=== PATIENT | male | born 1955 | race Caucasian/White ===

== ENCOUNTER 2017-02-22 16:52 | Inpatient (IN) | payer OTHER ==
[~2017-02-22] VITALS: Ht 167.6 cm; Wt 80.6 kg
[~2017-02-22 16:52] MED LIST: ALBUTEROL SULFATE HFA 90 MCG/PUFF 8 GM INHALER IH ONE; DIABETIC MEDICATION PO; ESMOLOL HCL 10 MG/ML 10 ML VIAL IVP ONE; GLYCOPYRROLATE 0.2 MG/ML VIAL IM ONE; LIDOCAINE HCL/PF 2% 5 ML VIAL IM ONE; LISI-661 PO; METOCLOPRAMIDE HCL 5 MG/ML 2 ML VIAL IVP ONE; NEOSTIGMINE METHYLSULFATE 1 MG/ML 10 ML VIAL IVP ONE; PROPOFOL 1% 20 ML VIAL IVP ONE; ROCURONIUM BROMIDE 10 MG/ML 5 ML VIAL IVP ONE; SIMV20TA6 PO; SYMB8060 IH
[2017-02-22 17:20] LABS: BASOPHILS % (AUTO) 0.2 % (0.0-2.0); HEMATOCRIT 36.9 % (41-53); HEMOGLOBIN 12.3 g/dL (13.5-17.5); LYMPHOCYTES # (AUTO) 1.2 K/uL (1.0-4.8); LYMPHOCYTES % (AUTO) 12.4 % (22.0-44.0); MEAN CORPUSCULAR HEMOGLOBIN 30.2 pg (26.0-34.0); MEAN CORPUSCULAR HGB CONC 33.4 G/dL (31.0-37.0); MEAN CORPUSCULAR VOLUME 91 fL (80-100); MONOCYTES # (AUTO) 0.5 K/uL (0.1-1.0); MONOCYTES % (AUTO) 5.2 % (2.0-9.0); NEUTROPHILS # (AUTO) 7.7 K/uL (1.8-7.7); NEUTROPHILS % (AUTO) 81.2 % (40.0-70.0); PLATELET COUNT (AUTO) 283 K/uL (150-450); RED BLOOD CELL COUNT(AUTO) 4.08 MIL/uL (4.50-5.90); RED CELL DISTRIBUTION WIDTH 12.9 % (11.5-14.5); WHITE BLOOD COUNT (AUTO) 9.5 K/uL (4.5-11.0)
[2017-02-22 17:25] LABS: CALCIUM, TOTAL 8.5 mg/dL (8.8-10.5); CREATININE 1.65 mg/dL (0.60-1.30); POTASSIUM 4.1 mmol/L (3.5-5.1)
[2017-02-22 17:30] LABS: ALBUMIN 2.7 g/dL (3.4-5.0); BILIRUBIN,TOTAL 0.8 mg/dL (0.1-1.0); INR 1.1 (0.9-1.1); PROTHROMBIN TIME 11.3 SEC (9.4-11.6); TOTAL PROTEIN, SERUM 6.8 g/dL (6.4-8.2)
[2017-02-22 18:12] LABS: GLUCOSE,POINT OF CARE 372 MG/DL (70-110)
[2017-02-22] MEDS ORDERED: LOPE2 PO (18:19)
[2017-02-22] MEDS ORDERED: CARV3 PO (18:19)
[2017-02-22] MEDS ORDERED: AMLO-511 PO (18:19)
[2017-02-22] MEDS ORDERED: METO-323 PO (18:19)
[2017-02-22] MEDS ORDERED: HYDR25TA PO (18:19)
[2017-02-22] MEDS ORDERED: ASPI-556 PO (18:19)
[2017-02-22] MEDS ORDERED: LINA5TAB PO (18:19)
[2017-02-22] MEDS ORDERED: CLOP75 PO (18:19)
[2017-02-22] MEDS ORDERED: ISOS30TA6 PO (18:19)
[2017-02-22] MEDS ORDERED: NITR.4 SL (18:19)
[2017-02-22] MEDS ORDERED: INSLAN SQ (18:20)
[2017-02-22] MEDS ORDERED: INSNOV SQ (18:20)
[2017-02-22] MEDS ORDERED: ONDANSETRON HCL 4 MG/2 ML VIAL IVP ONE (18:30)
[2017-02-22] MEDS ORDERED: INSULIN REGULAR, HUMAN 100 UNITS/ML IVP ONE (18:30)
[2017-02-22] MEDS ORDERED: VANCOMYCIN HCL 1 GM/D5% WATER 200 ML IV ONE (18:30)
[2017-02-22] MEDS ORDERED: MORPHINE SULFATE 4 MG/ML SYRINGE IVP ONE (18:30)
[2017-02-22] MEDS ORDERED: SODIUM CHLORIDE 0.9% 1,000 ML IV ONE (18:30)
[2017-02-22] MEDS ORDERED: ACETAMINOPHEN 325 MG TABLET PO PRN (19:30)
[2017-02-22] MEDS ORDERED: DEXTROSE 50%-WATER 25 GM/50 ML SYRINGE IVP PRN ×2 (19:30→23:45)
[2017-02-22] MEDS ORDERED: ONDANSETRON HCL 4 MG/2 ML VIAL IVP PRN (19:30)
[2017-02-22] MEDS ORDERED: 0.9% SODIUM CHLORIDE 10 ML SYRINGE IVP PRN (19:30)
[2017-02-22 19:51] LABS: GLUCOSE COMMENT 1 Doctor Notified; GLUCOSE,POINT OF CARE 227 MG/DL (70-110)
[2017-02-22 20:54] VITALS: BP 109/69
[2017-02-22 23:42] VITALS: BP 119/71
[2017-02-22] MEDS ORDERED: OxyCODONE HCL/ACETAMINOPHEN 5-325 MG TABLET PO PRN (23:45)
[2017-02-23] MEDS ORDERED: SODIUM CHLORIDE 0.9% 0 ML IV ONE (00:26)
[2017-02-23] MEDS: PIPERACILLIN/TAZO 3.375 GM/D5W 50 ML IV SCH ×5 (00:32→23:40)
[2017-02-23 04:51] VITALS: BP 121/72
[2017-02-23 06:12] LABS: BASOPHILS % (AUTO) 0.5 % (0.0-2.0); EOSINOPHILS % (AUTO) 1.7 % (1.0-6.0); LYMPHOCYTES # (AUTO) 1.3 K/uL (1.0-4.8); LYMPHOCYTES % (AUTO) 18.3 % (22.0-44.0); MEAN CORPUSCULAR HEMOGLOBIN 30.3 pg (26.0-34.0); MEAN CORPUSCULAR HGB CONC 33.2 G/dL (31.0-37.0); MEAN CORPUSCULAR VOLUME 91 fL (80-100); MONOCYTES # (AUTO) 0.6 K/uL (0.1-1.0); NEUTROPHILS % (AUTO) 71.5 % (40.0-70.0); PLATELET COUNT (AUTO) 238 K/uL (150-450); RED BLOOD CELL COUNT(AUTO) 3.61 MIL/uL (4.50-5.90); RED CELL DISTRIBUTION WIDTH 12.9 % (11.5-14.5)
[2017-02-23 06:26] LABS: ALBUMIN 2.1 g/dL (3.4-5.0); BILIRUBIN,TOTAL 0.5 mg/dL (0.1-1.0); CALCIUM, TOTAL 7.6 mg/dL (8.8-10.5); CREATININE 1.43 mg/dL (0.60-1.30); POTASSIUM 3.6 mmol/L (3.5-5.1); TOTAL PROTEIN, SERUM 5.7 g/dL (6.4-8.2)
[2017-02-23] MEDS ORDERED: SODIUM CHLORIDE 0.9% 1,000 ML IV ONE (06:59)
[2017-02-23] MEDS ORDERED: SODIUM CHLORIDE 0.9% 500 ML IV ONE (07:00)
[2017-02-23] MEDS ORDERED: SODIUM CHLORIDE 0.9% 10 ML ONE (07:00)
[2017-02-23] MEDS ORDERED: SODIUM CL IRRIG SOLN BAG 3,000 ML IRRIG ONE (07:00)
[2017-02-23] MEDS ORDERED: BACITRACIN 50,000 UNITS/VIAL ONE (07:00)
[2017-02-23] MEDS ORDERED: FentaNYL CITRATE-PF 100 MCG/2 ML VIAL IVP ONE (07:02)
[2017-02-23] MEDS ORDERED: MIDAZOLAM HCL 2 MG/2 ML VIAL IVP ONE (07:02)
[2017-02-23 07:20] VITALS: BP 105/76
[2017-02-23] MEDS ORDERED: MEPERIDINE-PF 25 MG/ML SYRINGE IVP PRN (07:45)
[2017-02-23] MEDS ORDERED: OXYGEN THERAPY IH SCH (08:00)
[2017-02-23] MEDS ORDERED: NITROGLYCERIN 0.4 MG SUBLINGUAL TABLET #25 SL PRN (09:15)
[2017-02-23] MEDS ORDERED: HYDROCODONE/ACETAMINOPHEN 5-325 MG TABLET PO PRN (09:15)
[2017-02-23] MEDS ORDERED: ZOLPIDEM TARTRATE 10 MG TABLET PO PRN (09:15)
[2017-02-23] MEDS ORDERED: BISACODYL 10 MG RECTAL RECTAL SUPPOSITORY PR PRN (09:15)
[2017-02-23] MEDS ORDERED: AmLODIPine BESYLATE 5 MG TABLET PO SCH (09:15)
[2017-02-23] MEDS: FentaNYL CITRATE-PF 100 MCG/2 ML VIAL IVP PRN ×2 (09:20→09:38)
[2017-02-23] MEDS ORDERED: PNEUMOCOCCAL VACCINE POLYVALENT 0.5 ML VIAL [PPSV23] IM ONE (10:30)
[2017-02-23 11:02] LABS: GLUCOSE COMMENT 1 Received Meds; GLUCOSE,POINT OF CARE 294 MG/DL (70-110)
[2017-02-23 11:04] VITALS: BP 126/78
[2017-02-23 11:26] LABS: BASOPHILS # (AUTO) 0.04 K/uL (0.00-0.20); BASOPHILS % (AUTO) 0.7 % (0.0-2.0); EOSINOPHILS # (AUTO) 0.07 K/uL (0.00-0.70); EOSINOPHILS % (AUTO) 1.07 % (1.0-6.0); HEMATOCRIT 32.8 % (41-53); HEMOGLOBIN 11.1 g/dL (13.5-17.5); LYMPHOCYTES # (AUTO) 0.6 K/uL (1.0-4.8); LYMPHOCYTES % (AUTO) 8.9 % (22.0-44.0); MEAN CORPUSCULAR HGB CONC 33.8 G/dL (31.0-37.0); MEAN CORPUSCULAR VOLUME 89 fL (80-100); MONOCYTES # (AUTO) 0.3 K/uL (0.1-1.0); MONOCYTES % (AUTO) 5.2 % (2.0-9.0); NEUTROPHILS # (AUTO) 5.4 K/uL (1.8-7.7); NEUTROPHILS % (AUTO) 84.2 % (40.0-70.0); PLATELET COUNT (AUTO) 251 K/uL (150-450); RED BLOOD CELL COUNT(AUTO) 3.68 MIL/uL (4.50-5.90); RED CELL DISTRIBUTION WIDTH 12.5 % (11.5-14.5); WHITE BLOOD COUNT (AUTO) 6.4 K/uL (4.5-11.0)
[2017-02-23 11:30] LABS: CALCIUM, TOTAL 7.4 mg/dL (8.8-10.5); CREATININE 1.7 mg/dL (0.60-1.30); POTASSIUM 4.2 mmol/L (3.5-5.1)
[2017-02-23] MEDS ORDERED: SODIUM CHLORIDE 0.9% 250 ML IV ONE (11:52)
[2017-02-23] MEDS ORDERED: VANCOMYCIN HCL 1 GM/D5% WATER 200 ML IV ONE (12:00)
[2017-02-23] MEDS: INSULIN ASPART 100 UNITS/ML SQ PRN ×3 (12:11→21:07)
[2017-02-23] MEDS: HYDROCHLOROTHIAZIDE 25 MG TABLET PO SCH (14:33)
[2017-02-23] MEDS: CLOPIDOGREL BISULFATE 75 MG TABLET PO SCH (14:33)
[2017-02-23] MEDS: ASPIRIN 81 MG EC TABLET PO SCH (14:33)
[2017-02-23] MEDS: LISINOPRIL 10 MG TABLET PO SCH (14:33)
[2017-02-23] MEDS: METOPROLOL SUCCINATE 25 MG ER TABLET PO SCH (14:34)
[2017-02-23] MEDS: BUDESONIDE/FORMOTEROL FUMARATE 80-4.5 MCG/PUFF 6.9 GM INHALER IH SCH ×2 (14:34→20:58)
[2017-02-23 15:25] VITALS: BP 108/63
[2017-02-23] MEDS: HEPARIN SODIUM,PORCINE 5,000 UNITS/ML VIAL SQ SCH ×2 (16:24→23:40)
[2017-02-23] MEDS: MORPHINE SULFATE 4 MG/ML SYRINGE IVP PRN (16:40)
[2017-02-23] MEDS: INSULIN ASPART 100 UNITS/ML SQ SCH (17:10)
[2017-02-23 20:22] VITALS: BP 104/61
[2017-02-23] MEDS: DOCUSATE SODIUM 100 MG CAPSULE PO SCH (20:58)
[2017-02-23] MEDS: SIMVASTATIN 20 MG TABLET PO SCH (20:58)
[2017-02-23] MEDS: CARVEDILOL 3.125 MG TABLET PO SCH (20:59)
[2017-02-23] MEDS ORDERED: DEXTROSE 50%-WATER 25 GM/50 ML SYRINGE IVP PRN (23:15)
[2017-02-23] MEDS: ACETAMINOPHEN 325 MG TABLET PO PRN (23:40)
[2017-02-24] VITALS (13 sets, daily range): BP systolic 82–127; BP diastolic 49–60
[2017-02-24] MEDS: PIPERACILLIN/TAZO 3.375 GM/D5W 50 ML IV SCH ×3 (05:41→18:53)
[2017-02-24] MEDS: INSULIN ASPART 100 UNITS/ML SQ PRN ×4 (05:51→20:56)
[2017-02-24] MEDS: INSULIN ASPART 100 UNITS/ML SQ SCH ×2 (05:51→17:30)
[2017-02-24 07:11] LABS: BASOPHILS # (AUTO) 0.02 K/uL (0.00-0.20); BASOPHILS % (AUTO) 0.3 % (0.0-2.0); EOSINOPHILS # (AUTO) 0.07 K/uL (0.00-0.70); HEMATOCRIT 30.9 % (41-53); HEMOGLOBIN 10.3 g/dL (13.5-17.5); LYMPHOCYTES # (AUTO) 0.9 K/uL (1.0-4.8); LYMPHOCYTES % (AUTO) 15.1 % (22.0-44.0); MEAN CORPUSCULAR HEMOGLOBIN 30.1 pg (26.0-34.0); MEAN CORPUSCULAR HGB CONC 33.5 G/dL (31.0-37.0); MEAN CORPUSCULAR VOLUME 90 fL (80-100); MONOCYTES # (AUTO) 0.5 K/uL (0.1-1.0); MONOCYTES % (AUTO) 8.5 % (2.0-9.0); NEUTROPHILS # (AUTO) 4.5 K/uL (1.8-7.7); NEUTROPHILS % (AUTO) 74.9 % (40.0-70.0); PLATELET COUNT (AUTO) 271 K/uL (150-450); RED BLOOD CELL COUNT(AUTO) 3.44 MIL/uL (4.50-5.90); RED CELL DISTRIBUTION WIDTH 13.4 % (11.5-14.5)
[2017-02-24 07:18] LABS: HEMOGLOBIN A1C 13.1 % (4.5-6.2)
[2017-02-24 07:39] LABS: CALCIUM, TOTAL 7.6 mg/dL (8.8-10.5); CREATININE 3.27 mg/dL (0.60-1.30); POTASSIUM 3.6 mmol/L (3.5-5.1)
[2017-02-24] MEDS ORDERED: VANCOMYCIN HCL 1.25 GM in DEXTROSE 5%-WATER 250 ML IV SCH (08:00)
[2017-02-24] MEDS: HYDROCHLOROTHIAZIDE 25 MG TABLET PO SCH (09:00)
[2017-02-24] MEDS: METOPROLOL SUCCINATE 25 MG ER TABLET PO SCH (09:00)
[2017-02-24] MEDS: CARVEDILOL 3.125 MG TABLET PO SCH ×2 (09:00→21:00)
[2017-02-24] MEDS: LISINOPRIL 10 MG TABLET PO SCH (09:00)
[2017-02-24] MEDS: BUDESONIDE/FORMOTEROL FUMARATE 80-4.5 MCG/PUFF 6.9 GM INHALER IH SCH ×2 (09:25→20:51)
[2017-02-24] MEDS: HEPARIN SODIUM,PORCINE 5,000 UNITS/ML VIAL SQ SCH ×2 (09:26→18:53)
[2017-02-24] MEDS: CLOPIDOGREL BISULFATE 75 MG TABLET PO SCH (09:26)
[2017-02-24] MEDS: LinaGLIPtin 5 MG TABLET PO SCH (09:30)
[2017-02-24] MEDS: ASPIRIN 81 MG EC TABLET PO SCH (09:30)
[2017-02-24] MEDS: DOCUSATE SODIUM 100 MG CAPSULE PO SCH ×2 (09:31→20:50)
[2017-02-24] MEDS ORDERED: VANCOMYCIN HCL 1 GM/D5% WATER 200 ML IV PRN (10:15)
[2017-02-24] MEDS ORDERED: SODIUM CHLORIDE 0.9% 250 ML IV ONE ×2 (12:09→12:15)
[2017-02-24 18:31] LABS: GLUCOSE COMMENT 1 Received Meds; GLUCOSE,POINT OF CARE 229 MG/DL (70-110)
[2017-02-24 18:31] LABS: GLUCOSE COMMENT 1 Received Meds; GLUCOSE,POINT OF CARE 143 MG/DL (70-110)
[2017-02-24] MEDS: ISOSORBIDE MONONITRATE 30 MG ER TABLET PO SCH (18:52)
[2017-02-24] MEDS: SIMVASTATIN 20 MG TABLET PO SCH (20:50)
[2017-02-24 23:17] LABS: GLUCOSE COMMENT 1 Received Meds; GLUCOSE,POINT OF CARE 202 MG/DL (70-110)
[2017-02-25] VITALS (7 sets, daily range): BP systolic 99–137; BP diastolic 60–80
[2017-02-25] MEDS: ACETAMINOPHEN 325 MG TABLET PO PRN (00:06)
[2017-02-25] MEDS: HEPARIN SODIUM,PORCINE 5,000 UNITS/ML VIAL SQ SCH ×3 (00:06→15:05)
[2017-02-25] MEDS: PIPERACILLIN/TAZO 3.375 GM/D5W 50 ML IV SCH ×4 (00:07→17:40)
[2017-02-25] MEDS: INSULIN ASPART 100 UNITS/ML SQ SCH ×2 (06:22→15:03)
[2017-02-25] MEDS: INSULIN ASPART 100 UNITS/ML SQ PRN ×4 (06:22→20:40)
[2017-02-25 06:59] LABS: GLUCOSE COMMENT 1 Received Meds; GLUCOSE,POINT OF CARE 304 MG/DL (70-110)
[2017-02-25 06:59] LABS: GLUCOSE COMMENT 1 Received Meds; GLUCOSE,POINT OF CARE 187 MG/DL (70-110)
[2017-02-25 06:59] LABS: GLUCOSE COMMENT 1 Received Meds; GLUCOSE,POINT OF CARE 191 MG/DL (70-110)
[2017-02-25 06:59] LABS: GLUCOSE COMMENT 1 Received Meds; GLUCOSE,POINT OF CARE 214 MG/DL (70-110)
[2017-02-25 06:59] LABS: GLUCOSE COMMENT 1 Received Meds; GLUCOSE,POINT OF CARE 302 MG/DL (70-110)
[2017-02-25 07:20] LABS: CALCIUM, TOTAL 7.2 mg/dL (8.8-10.5); CREATININE 4.19 mg/dL (0.60-1.30); POTASSIUM 3.5 mmol/L (3.5-5.1)
[2017-02-25] MEDS ORDERED: SODIUM CHLORIDE 0.9% IRRIG BTL 1,000 ML IRRIG ONE (08:40)
[2017-02-25] MEDS: CARVEDILOL 3.125 MG TABLET PO SCH ×2 (08:55→21:00)
[2017-02-25] MEDS: LISINOPRIL 10 MG TABLET PO SCH (08:56)
[2017-02-25] MEDS: METOPROLOL SUCCINATE 25 MG ER TABLET PO SCH (08:56)
[2017-02-25] MEDS: ISOSORBIDE MONONITRATE 30 MG ER TABLET PO SCH (08:56)
[2017-02-25] MEDS: HYDROCHLOROTHIAZIDE 25 MG TABLET PO SCH (08:56)
[2017-02-25] MEDS: ASPIRIN 81 MG EC TABLET PO SCH (08:59)
[2017-02-25] MEDS: DOCUSATE SODIUM 100 MG CAPSULE PO SCH ×2 (09:02→20:30)
[2017-02-25] MEDS: LinaGLIPtin 5 MG TABLET PO SCH (09:02)
[2017-02-25] MEDS: CLOPIDOGREL BISULFATE 75 MG TABLET PO SCH (09:02)
[2017-02-25] MEDS: BUDESONIDE/FORMOTEROL FUMARATE 80-4.5 MCG/PUFF 6.9 GM INHALER IH SCH ×2 (09:03→20:30)
[2017-02-25] MEDS: SIMVASTATIN 20 MG TABLET PO SCH (20:30)
[2017-02-26] MEDS: PIPERACILLIN/TAZO 3.375 GM/D5W 50 ML IV SCH ×4 (00:20→18:09)
[2017-02-26] MEDS: HEPARIN SODIUM,PORCINE 5,000 UNITS/ML VIAL SQ SCH ×3 (00:21→16:07)
[2017-02-26 04:25] VITALS: BP 146/83
[2017-02-26] MEDS ORDERED: SODIUM CHLORIDE 0.9% 250 ML IV ONE (05:14)
[2017-02-26] MEDS: INSULIN ASPART 100 UNITS/ML SQ SCH ×2 (06:24→17:18)
[2017-02-26] MEDS: INSULIN ASPART 100 UNITS/ML SQ PRN ×4 (06:25→20:36)
[2017-02-26 06:27] LABS: BASOPHILS % (AUTO) 0.2 % (0.0-2.0); EOSINOPHILS % (AUTO) 1.8 % (1.0-6.0); HEMATOCRIT 32.6 % (41-53); HEMOGLOBIN 10.7 g/dL (13.5-17.5); LYMPHOCYTES # (AUTO) 0.7 K/uL (1.0-4.8); LYMPHOCYTES % (AUTO) 13.4 % (22.0-44.0); MEAN CORPUSCULAR HEMOGLOBIN 29.7 pg (26.0-34.0); MEAN CORPUSCULAR HGB CONC 32.8 G/dL (31.0-37.0); MEAN CORPUSCULAR VOLUME 91 fL (80-100); MONOCYTES # (AUTO) 0.4 K/uL (0.1-1.0); MONOCYTES % (AUTO) 8.3 % (2.0-9.0); NEUTROPHILS # (AUTO) 4.1 K/uL (1.8-7.7); NEUTROPHILS % (AUTO) 76.3 % (40.0-70.0); PLATELET COUNT (AUTO) 298 K/uL (150-450); RED CELL DISTRIBUTION WIDTH 13.1 % (11.5-14.5); WHITE BLOOD COUNT (AUTO) 5.3 K/uL (4.5-11.0)
[2017-02-26 06:58] LABS: ALBUMIN 1.8 g/dL (3.4-5.0); BILIRUBIN,TOTAL 0.6 mg/dL (0.1-1.0); CALCIUM, TOTAL 7.9 mg/dL (8.8-10.5); CREATININE 3.75 mg/dL (0.60-1.30); POTASSIUM 3.9 mmol/L (3.5-5.1); TOTAL PROTEIN, SERUM 5.9 g/dL (6.4-8.2)
[2017-02-26 07:23] VITALS: BP 133/84
[2017-02-26 07:52] LABS: GLUCOSE COMMENT 1 Received Meds; GLUCOSE,POINT OF CARE 180 MG/DL (70-110)
[2017-02-26 07:52] LABS: GLUCOSE COMMENT 1 Received Meds; GLUCOSE,POINT OF CARE 185 MG/DL (70-110)
[2017-02-26] MEDS ORDERED: VANCOMYCIN HCL 1.25 GM in DEXTROSE 5%-WATER 250 ML IV ONE (08:00)
[2017-02-26] MEDS: DOCUSATE SODIUM 100 MG CAPSULE PO SCH ×2 (08:34→20:31)
[2017-02-26] MEDS: CARVEDILOL 3.125 MG TABLET PO SCH ×2 (08:35→20:31)
[2017-02-26] MEDS: ISOSORBIDE MONONITRATE 30 MG ER TABLET PO SCH (08:36)
[2017-02-26] MEDS: CLOPIDOGREL BISULFATE 75 MG TABLET PO SCH (08:36)
[2017-02-26] MEDS: ASPIRIN 81 MG EC TABLET PO SCH (08:36)
[2017-02-26] MEDS: LinaGLIPtin 5 MG TABLET PO SCH (08:38)
[2017-02-26] MEDS: BUDESONIDE/FORMOTEROL FUMARATE 80-4.5 MCG/PUFF 6.9 GM INHALER IH SCH (08:40)
[2017-02-26 11:05] VITALS: BP 140/78
[2017-02-26] MEDS: LISINOPRIL 10 MG TABLET PO SCH (11:47)
[2017-02-26] MEDS: HYDROCHLOROTHIAZIDE 25 MG TABLET PO SCH (11:47)
[2017-02-26] MEDS ORDERED: MULTIVITAMINS WITH MINERALS, THERAPEUTIC TABLET PO ONE (13:30)
[2017-02-26 15:22] VITALS: BP 134/84
[2017-02-26] MEDS: METOPROLOL SUCCINATE 25 MG ER TABLET PO SCH (15:41)
[2017-02-26] MEDS ORDERED: ONDANSETRON HCL 4 MG/2 ML VIAL IVP PRN (18:45)
[2017-02-26 19:20] VITALS: BP 117/72
[2017-02-26 20:07] LABS: GLUCOSE COMMENT 1 Received Meds; GLUCOSE,POINT OF CARE 241 MG/DL (70-110)
[2017-02-26] MEDS: SIMVASTATIN 20 MG TABLET PO SCH (20:31)
[2017-02-26 23:19] VITALS: BP 105/55
[2017-02-27] MEDS: BUDESONIDE/FORMOTEROL FUMARATE 80-4.5 MCG/PUFF 6.9 GM INHALER IH SCH ×3 (00:21→20:24)
[2017-02-27] MEDS: PIPERACILLIN/TAZO 3.375 GM/D5W 50 ML IV SCH ×4 (00:21→17:22)
[2017-02-27] MEDS: HEPARIN SODIUM,PORCINE 5,000 UNITS/ML VIAL SQ SCH ×3 (00:21→17:21)
[2017-02-27] MEDS: LOPERAMIDE HCL 2 MG CAPSULE PO PRN ×2 (02:46→09:56)
[2017-02-27 04:41] VITALS: BP 126/76
[2017-02-27] MEDS: INSULIN ASPART 100 UNITS/ML SQ PRN ×4 (06:21→20:30)
[2017-02-27 07:25] LABS: CALCIUM, TOTAL 7.7 mg/dL (8.8-10.5); CREATININE 2.96 mg/dL (0.60-1.30); POTASSIUM 3.8 mmol/L (3.5-5.1)
[2017-02-27 07:32] VITALS: BP 141/75
[2017-02-27] MEDS: DOCUSATE SODIUM 100 MG CAPSULE PO SCH ×2 (09:00→20:12)
[2017-02-27] MEDS: CARVEDILOL 3.125 MG TABLET PO SCH ×2 (09:49→20:24)
[2017-02-27] MEDS: CLOPIDOGREL BISULFATE 75 MG TABLET PO SCH (09:50)
[2017-02-27] MEDS: HYDROCHLOROTHIAZIDE 25 MG TABLET PO SCH (09:50)
[2017-02-27] MEDS: ASPIRIN 81 MG EC TABLET PO SCH (09:50)
[2017-02-27] MEDS: PANTOPRAZOLE SODIUM 40 MG DR TABLET PO SCH (09:50)
[2017-02-27] MEDS: LinaGLIPtin 5 MG TABLET PO SCH (09:51)
[2017-02-27 10:21] LABS: GLUCOSE COMMENT 1 Received Meds; GLUCOSE,POINT OF CARE 220 MG/DL (70-110)
[2017-02-27 11:15] VITALS: BP 154/83
[2017-02-27] MEDS: METOPROLOL SUCCINATE 25 MG ER TABLET PO SCH (12:10)
[2017-02-27] MEDS: LISINOPRIL 10 MG TABLET PO SCH (12:10)
[2017-02-27] MEDS: ISOSORBIDE MONONITRATE 30 MG ER TABLET PO SCH (12:10)
[2017-02-27] MEDS: INSULIN ASPART 100 UNITS/ML SQ SCH (13:17)
[2017-02-27 15:30] VITALS: BP 142/78
[2017-02-27] MEDS: MORPHINE SULFATE 4 MG/ML SYRINGE IVP PRN (17:22)
[2017-02-27 19:24] VITALS: BP 123/73
[2017-02-27] MEDS: SIMVASTATIN 20 MG TABLET PO SCH (20:24)
[2017-02-27 23:32] VITALS: BP 105/64
[2017-02-28] MEDS ORDERED: SODIUM CHLORIDE 0.9% 250 ML IV ONE (00:27)
[2017-02-28] MEDS: PIPERACILLIN/TAZO 3.375 GM/D5W 50 ML IV SCH ×3 (00:33→11:38)
[2017-02-28] MEDS: HEPARIN SODIUM,PORCINE 5,000 UNITS/ML VIAL SQ SCH ×2 (00:34→08:47)
[2017-02-28 04:04] VITALS: BP 129/68
[2017-02-28] MEDS: INSULIN ASPART 100 UNITS/ML SQ PRN ×2 (06:43→11:40)
[2017-02-28 06:44] LABS: BASOPHILS % (AUTO) 0.2 % (0.0-2.0); HEMOGLOBIN 10.3 g/dL (13.5-17.5); LYMPHOCYTES # (AUTO) 1.2 K/uL (1.0-4.8); LYMPHOCYTES % (AUTO) 23.9 % (22.0-44.0); MEAN CORPUSCULAR HEMOGLOBIN 29.9 pg (26.0-34.0); MEAN CORPUSCULAR HGB CONC 33.1 G/dL (31.0-37.0); MEAN CORPUSCULAR VOLUME 91 fL (80-100); MONOCYTES # (AUTO) 0.4 K/uL (0.1-1.0); MONOCYTES % (AUTO) 8.1 % (2.0-9.0); NEUTROPHILS # (AUTO) 3.2 K/uL (1.8-7.7); NEUTROPHILS % (AUTO) 64.8 % (40.0-70.0); PLATELET COUNT (AUTO) 285 K/uL (150-450); RED BLOOD CELL COUNT(AUTO) 3.43 MIL/uL (4.50-5.90)
[2017-02-28 07:01] LABS: ALBUMIN 1.8 g/dL (3.4-5.0); BILIRUBIN,TOTAL 0.4 mg/dL (0.1-1.0); CALCIUM, TOTAL 7.8 mg/dL (8.8-10.5); CREATININE 2.56 mg/dL (0.60-1.30); MAGNESIUM 1.9 mg/dL (1.80-2.40); POTASSIUM 3.9 mmol/L (3.5-5.1)
[2017-02-28 07:32] LABS: GLUCOSE COMMENT 1 Received Meds; GLUCOSE,POINT OF CARE 210 MG/DL (70-110)
[2017-02-28 07:37] LABS: GLUCOSE COMMENT 1 Received Meds; GLUCOSE,POINT OF CARE 215 MG/DL (70-110)
[2017-02-28 07:37] LABS: GLUCOSE COMMENT 1 Received Meds; GLUCOSE,POINT OF CARE 280 MG/DL (70-110)
[2017-02-28 07:38] LABS: GLUCOSE COMMENT 1 Received Meds; GLUCOSE,POINT OF CARE 263 MG/DL (70-110)
[2017-02-28 07:38] LABS: GLUCOSE COMMENT 1 Received Meds; GLUCOSE,POINT OF CARE 254 MG/DL (70-110)
[2017-02-28 07:38] LABS: GLUCOSE COMMENT 1 Received Meds; GLUCOSE,POINT OF CARE 265 MG/DL (70-110)
[2017-02-28 07:38] LABS: GLUCOSE COMMENT 1 Received Meds; GLUCOSE,POINT OF CARE 226 MG/DL (70-110)
[2017-02-28 07:44] VITALS: BP 134/76
[2017-02-28] MEDS ORDERED: VANCOMYCIN HCL 750 MG in DEXTROSE 5%-WATER 150 ML IV ONE (08:00)
[2017-02-28] MEDS: ISOSORBIDE MONONITRATE 30 MG ER TABLET PO SCH (08:48)
[2017-02-28] MEDS: CARVEDILOL 3.125 MG TABLET PO SCH (08:48)
[2017-02-28] MEDS: DOCUSATE SODIUM 100 MG CAPSULE PO SCH ×2 (08:48→09:00)
[2017-02-28] MEDS: HYDROCHLOROTHIAZIDE 25 MG TABLET PO SCH (08:48)
[2017-02-28] MEDS: BUDESONIDE/FORMOTEROL FUMARATE 80-4.5 MCG/PUFF 6.9 GM INHALER IH SCH (08:48)
[2017-02-28] MEDS: ASPIRIN 81 MG EC TABLET PO SCH (08:48)
[2017-02-28] MEDS: METOPROLOL SUCCINATE 25 MG ER TABLET PO SCH (08:49)
[2017-02-28] MEDS: LinaGLIPtin 5 MG TABLET PO SCH (08:49)
[2017-02-28] MEDS: PANTOPRAZOLE SODIUM 40 MG DR TABLET PO SCH (08:49)
[2017-02-28] MEDS: LISINOPRIL 10 MG TABLET PO SCH (08:49)
[2017-02-28] MEDS: CLOPIDOGREL BISULFATE 75 MG TABLET PO SCH (08:49)
[2017-02-28 11:37] VITALS: BP 147/80
[2017-02-28] MEDS ORDERED: DOCU-174 PO (12:04)
[2017-02-28] MEDS ORDERED: HEPA500035 SQ (12:06)
[2017-02-28] MEDS ORDERED: PANT40TA25 PO (12:06)
[2017-02-28] MEDS ORDERED: PIPE3.379 IV (12:07)
[2017-02-28] MEDS: MORPHINE SULFATE 4 MG/ML SYRINGE IVP PRN (13:11)
[2017-03-01 07:22] LABS: GLUCOSE,POINT OF CARE 320 MG/DL (70-110)
[2017-03-01] MEDS ORDERED: SODIUM CHLORIDE 0.9% 1,000 ML IV ONE (16:22)
[2017-03-01] MEDS ORDERED: FentaNYL CITRATE-PF 100 MCG/2 ML VIAL ONE (16:22)
[2017-03-01] MEDS ORDERED: NITROGLYCERIN 2% (1 GM=INCH) PACKET TP ONE (16:22)
[2017-03-22 16:43] LABS: GLUCOSE COMMENT 1 Received Meds; GLUCOSE,POINT OF CARE 207 MG/DL (70-110)
== END 2017-02-28 15:35 | DRG 987 ==
LOC: EMS 16:53 → 6N 19:30 → 5S 02-23 10:08
PROVIDERS: ADMIT Surgery; ATTEND Family Medicine
PROC: 3E0234Z Introduction of Serum, Toxoid and Vaccine into Muscle, Percutaneous Approach (ICD-10-PCS; 2017-02-23)
PROC: 0J9C0ZZ Drainage of Pelvic Region Subcutaneous Tissue and Fascia, Open Approach (ICD-10-PCS; principal; 2017-02-23 07:30)
DX: T82.7XXA Infection and inflammatory reaction due to other cardiac and vascular devices, implants and grafts, initial encounter (principal); E43 Unspecified severe protein-calorie malnutrition; L03.314 Cellulitis of groin; I13.0 Hypertensive heart and chronic kidney disease with heart failure and stage 1 through stage 4 chronic kidney disease, or unspecified chronic kidney disease; L02.214 Cutaneous abscess of groin; Y83.8 Other surgical procedures as the cause of abnormal reaction of the patient, or of later complication, without mention of misadventure at the time of the procedure; E11.65 Type 2 diabetes mellitus with hyperglycemia; E78.5 Hyperlipidemia, unspecified; I25.10 Atherosclerotic heart disease of native coronary artery without angina pectoris; N47.2 Paraphimosis; N47.1 Phimosis; B95.1 Streptococcus, group B, as the cause of diseases classified elsewhere; K59.00 Constipation, unspecified; M47.814 Spondylosis without myelopathy or radiculopathy, thoracic region; F32.9 Major depressive disorder, single episode, unspecified; N18.3 Chronic kidney disease, stage 3 (moderate); K21.9 Gastro-esophageal reflux disease without esophagitis; J11.1 Influenza due to unidentified influenza virus with other respiratory manifestations; K40.90 Unilateral inguinal hernia, without obstruction or gangrene, not specified as recurrent; I50.9 Heart failure, unspecified; I73.9 Peripheral vascular disease, unspecified; G56.00 Carpal tunnel syndrome, unspecified upper limb; I95.9 Hypotension, unspecified; E11.42 Type 2 diabetes mellitus with diabetic polyneuropathy; E11.22 Type 2 diabetes mellitus with diabetic chronic kidney disease; Z90.49 Acquired absence of other specified parts of digestive tract; Z98.890 Other specified postprocedural states; Z87.11 Personal history of peptic ulcer disease; Y92.89 Other specified places as the place of occurrence of the external cause; Z79.4 Long term (current) use of insulin; I25.2 Old myocardial infarction; Z95.1 Presence of aortocoronary bypass graft; Z88.8 Allergy status to other drugs, medicaments and biological substances; Z88.6 Allergy status to analgesic agent; Z68.28 Body mass index [BMI] 28.0-28.9, adult; Z79.82 Long term (current) use of aspirin; Z23 Encounter for immunization; Z95.5 Presence of coronary angioplasty implant and graft
CPT/HCPCS: 82962; 83036; 83735; 87040; 87070; 87081; 87147; 87205; 88304; 90471; 93005; 96365; 96366; 96374; 96375; 97163; 97530; 99285; G0238; J0690; J1644; J1815; J2250; J2270; J2405; J2543; J2704; J2765; J3010; J3370; J3490; J3535; J7030; J7040; J7050; J7060

== ENCOUNTER → 2017-05-09 | Outpatient (CLI) | payer OTHER ==
[~2017-05-09] MED LIST changes: -ALBUTEROL SULFATE HFA 90 MCG/PUFF 8 GM INHALER IH ONE; +AMLO-511 PO; +ASPI-556 PO; +CARV3 PO; +CLOP75 PO; +DOCU-174 PO; -ESMOLOL HCL 10 MG/ML 10 ML VIAL IVP ONE; -GLYCOPYRROLATE 0.2 MG/ML VIAL IM ONE; +HEPA500035 SQ; +HYDR25TA PO; +INSLAN SQ; +INSNOV SQ; +ISOS30TA6 PO; -LIDOCAINE HCL/PF 2% 5 ML VIAL IM ONE; +LINA5TAB PO; +LOPE2 PO; +METO-323 PO; -METOCLOPRAMIDE HCL 5 MG/ML 2 ML VIAL IVP ONE; -NEOSTIGMINE METHYLSULFATE 1 MG/ML 10 ML VIAL IVP ONE; +NITR.4 SL; +PANT40TA25 PO; +PIPE3.379 IV; -PROPOFOL 1% 20 ML VIAL IVP ONE; -ROCURONIUM BROMIDE 10 MG/ML 5 ML VIAL IVP ONE
== END | disposition home or self-care (01) ==
LOC: RADPV 10:02
PROVIDERS: ATTEND Family Medicine
DX: M16.11 Unilateral primary osteoarthritis, right hip (principal); M50.321 Other cervical disc degeneration at C4-C5 level; M50.322 Other cervical disc degeneration at C5-C6 level; M50.323 Other cervical disc degeneration at C6-C7 level; M47.812 Spondylosis without myelopathy or radiculopathy, cervical region; M43.12 Spondylolisthesis, cervical region
CPT/HCPCS: 72040; 73502

== ENCOUNTER 2017-11-13 15:13 | Emergency (ER) | payer OTHER ==
[~2017-11-13] VITALS: Ht 167.6 cm; Wt 80.5 kg
[~2017-11-13 15:13] MED LIST changes: -DOCU-174 PO; +DOCU100C33 PO; -METO-323 PO; +METO25XL PO
[2017-11-13 15:43] LABS: GLUCOSE COMMENT 1 Doctor Notified; GLUCOSE COMMENT 2 Repeated; GLUCOSE,POINT OF CARE > 600 MG/DL (70-110)
[2017-11-13] MEDS ORDERED: SODIUM CHLORIDE 0.9% 1,000 ML IV ONE ×4 (16:01→18:15)
[2017-11-13 16:22] LABS: BASOPHILS # (AUTO) 0.02 K/uL (0.00-0.20); BASOPHILS % (AUTO) 0.4 % (0.0-2.0); EOSINOPHILS # (AUTO) 0.09 K/uL (0.00-0.70); EOSINOPHILS % (AUTO) 1.55 % (1.0-6.0); HEMATOCRIT 37.4 % (41-53); HEMOGLOBIN 12.6 g/dL (13.5-17.5); LYMPHOCYTES # (AUTO) 1.1 K/uL (1.0-4.8); LYMPHOCYTES % (AUTO) 18.6 % (22.0-44.0); MEAN CORPUSCULAR HEMOGLOBIN 31.4 pg (26.0-34.0); MEAN CORPUSCULAR HGB CONC 33.7 G/dL (31.0-37.0); MEAN CORPUSCULAR VOLUME 93 fL (80-100); MONOCYTES # (AUTO) 0.2 K/uL (0.1-1.0); MONOCYTES % (AUTO) 3.8 % (2.0-9.0); NEUTROPHILS # (AUTO) 4.5 K/uL (1.8-7.7); NEUTROPHILS % (AUTO) 75.7 % (40.0-70.0); PLATELET COUNT (AUTO) 176 K/uL (150-450); RED BLOOD CELL COUNT(AUTO) 4.01 MIL/uL (4.50-5.90); RED CELL DISTRIBUTION WIDTH 12.9 % (11.5-14.5)
[2017-11-13 16:45] LABS: ALBUMIN 3.6 g/dL (3.4-5.0); BILIRUBIN,TOTAL 1.1 mg/dL (0.1-1.0); CALCIUM, TOTAL 9.1 mg/dL (8.8-10.5); CREATININE 1.69 mg/dL (0.60-1.30); POTASSIUM 4.5 mmol/L (3.5-5.1); TOTAL PROTEIN, SERUM 7.2 g/dL (6.4-8.2)
[2017-11-13] MEDS ORDERED: INSULIN REGULAR, HUMAN 100 UNITS/ML IVP ONE ×2 (17:15→18:15)
[2017-11-13 18:08] LABS: GLUCOSE COMMENT 2 Doctor Notified; GLUCOSE,POINT OF CARE 420 MG/DL (70-110)
[2017-11-13] MEDS ORDERED: POTASSIUM CHLORIDE 20 MEQ ER TABLET PO ONE (18:15)
[2017-11-13] MEDS ORDERED: TraMADol HCL 50 MG TABLET PO ONE (18:15)
[2017-11-13 20:12] LABS: GLUCOSE,POINT OF CARE 89 MG/DL (70-110)
[2017-11-13 20:21] VITALS: BP 160/91
== END 2017-11-13 20:57 | disposition home or self-care (01) ==
LOC: EMS 15:15
DX: S63.502A Unspecified sprain of left wrist, initial encounter (principal); E87.1 Hypo-osmolality and hyponatremia; E11.65 Type 2 diabetes mellitus with hyperglycemia; I13.0 Hypertensive heart and chronic kidney disease with heart failure and stage 1 through stage 4 chronic kidney disease, or unspecified chronic kidney disease; E11.22 Type 2 diabetes mellitus with diabetic chronic kidney disease; N18.9 Chronic kidney disease, unspecified; I50.9 Heart failure, unspecified; M54.5 Low back pain; M25.579 Pain in unspecified ankle and joints of unspecified foot; I20.9 Angina pectoris, unspecified; I25.10 Atherosclerotic heart disease of native coronary artery without angina pectoris; K21.9 Gastro-esophageal reflux disease without esophagitis; E78.00 Pure hypercholesterolemia, unspecified; I10 Essential (primary) hypertension; I25.2 Old myocardial infarction; Z95.1 Presence of aortocoronary bypass graft; Z88.5 Allergy status to narcotic agent; Z79.4 Long term (current) use of insulin; Z79.82 Long term (current) use of aspirin; Z88.8 Allergy status to other drugs, medicaments and biological substances; W18.30XA Fall on same level, unspecified, initial encounter; Y93.89 Activity, other specified; Y92.89 Other specified places as the place of occurrence of the external cause; Y99.8 Other external cause status
CPT/HCPCS: 36415; 71010; 73100; 80053; 82962; 83880; 84484; 85025; 93005; 96374; 96376; 99285; J1815; J7030